=== PATIENT | female | born 1995 | race Caucasian/White ===

== ENCOUNTER → 2018-05-05 | Outpatient (CLI) | payer BC ==
[~2018-05-05] MED LIST: AMOX500C2 PO
--- NOTE | 2018-05-05 14:38 | Diagnostic Imaging Report ---
INDICATION: Right wrist pain. Time of exam 2:47 PM 3 views of the right wrist were obtained. Distal radius and ulna are intact. Carpus is intact. Metacarpals are unremarkable. No fractures are seen. IMPRESSION: No acute bony abnormality is detected. Dictated by: Dictated on workstation # [id number]
== END ==
LOC: RAD 14:07
PROVIDERS: ATTEND Family Medicine
DX: M25.531 Pain in right wrist (principal)
CPT/HCPCS: 73110

== ENCOUNTER → 2021-02-28 | Outpatient (CLI) | payer BC ==
--- NOTE | 2021-02-28 17:31 | Diagnostic Imaging Report ---
INDICATION: Chest pain. Shortness of breath since receiving Covid vaccine. FINDINGS: PA and lateral views. The lungs are well-aerated and clear. There is no air-trapping. Heart is not enlarged. No pulmonary edema. No hilar adenopathy. No pneumothorax or pleural effusion. No bony abnormalities. IMPRESSION: Normal PA and lateral chest. Dictated by: Dictated on workstation # [id number]
== END ==
LOC: RAD 15:33
PROVIDERS: ATTEND Family Medicine
DX: R07.89 Other chest pain (principal); R06.02 Shortness of breath
CPT/HCPCS: 71046

== ENCOUNTER → 2021-03-07 | Outpatient (CLI) | payer BC ==
[~2021-03-07] MED LIST changes: +CATHETER FLUSH 10 ML SYR IV PRN; +HOLD METFORMIN - RECEIVED CONTRAST 20 ML VIAL IV SCH; +IOHEXOL 350 MG/ML 100 ML (OMNIPAQUE 350) VIAL IV ONE; +NS 100 ML (IVPB) BAG IV ONE
--- NOTE | 2021-03-07 09:57 | Diagnostic Imaging Report ---
PROCEDURE: CT angiography of the chest with contrast. TECHNIQUE: Multiple contiguous axial images were obtained through the chest after uneventful bolus administration of intravenous contrast. 3D reconstructed CTA MIP acquisitions were also performed. Auto Exposure Controls were utilized during the CT exam to meet ALARA standards for radiation dose reduction. INDICATION: Chest pain, shortness of air. FINDINGS: There are no intraluminal pulmonary arterial filling defects. There is no pneumothorax. No focal pulmonary consolidation. No air cyst, scarring, or fibrosis. The aorta is patent and nonaneurysmal. No acute soft tissue or osseous chest wall pathology. The visualized upper abdomen appears nonacute. IMPRESSION: Negative for PE or other acute abnormalities. Clear lungs. Dictated by: Dictated on workstation # [id number]
== END ==
LOC: RAD 08:39
PROVIDERS: ATTEND Family Medicine
DX: R07.9 Chest pain, unspecified (principal); R06.02 Shortness of breath
CPT/HCPCS: 71275

== ENCOUNTER → 2021-04-13 | Outpatient (CLI) | payer BC ==
[~2021-04-13] MED LIST changes: -CATHETER FLUSH 10 ML SYR IV PRN; -HOLD METFORMIN - RECEIVED CONTRAST 20 ML VIAL IV SCH; -IOHEXOL 350 MG/ML 100 ML (OMNIPAQUE 350) VIAL IV ONE; -NS 100 ML (IVPB) BAG IV ONE; +RT-ALBUTEROL SULF 2.5 MG/3 ML PRE-MIX VIAL INH ONE
[2021-04-13 08:54] LABS: ABG BASE EXCESS -1.5 MMOL/L (-2.5-2.5); ABG OXYGEN SATURATION 98 % (94-100); ABG PCO2 36 MMHG (35-45); ABG PH 7.41 (7.37-7.43); ABG PO2 95 MMHG (79-93); ABG TCO2 23.7 MMOL/L (21.0-31.0)
[2021-04-13 09:00] LABS: ALLENS TEST POSITIVE; PATIENT TEMP 36.6; VENTILATOR NO
== END ==
LOC: RT 07:59
PROVIDERS: ATTEND Internal Medicine Critical Care Medicine
DX: Z13.83 Encounter for screening for respiratory disorder NEC (principal); R06.00 Dyspnea, unspecified
CPT/HCPCS: 36600; 82805; 94060; 94726; 94729

== ENCOUNTER 2021-04-24 18:51 | Emergency (ER) | payer BC ==
[~2021-04-24] VITALS: Ht 172.7 cm; Wt 97.0 kg
[~2021-04-24 18:51] MED LIST changes: -RT-ALBUTEROL SULF 2.5 MG/3 ML PRE-MIX VIAL INH ONE
--- NOTE | 2021-04-24 19:13 | ED General ---
General Stated Complaint: CP Source of Information: Patient Exam Limitations: No Limitations History of Present Illness Date Seen by Provider: Apr 24, 2021 Time Seen by Provider: 19:05 Initial Comments To ER with c/o left sided chest pressure all day today. She has had some dyspnea and sharp chest pains ongoing since her diagnosis of Covid October 2020. She then got the Covid vaccine in February of this year. Since then she has had worsening of her shortness of breath. She has an albuterol inhaler at home which she does not feel was helpful. She also has taken some Motrin which does not seem to have helped with the chest pain. Timing/Duration: 1 Week, Getting Worse Associated Systoms: Chest Pain, Cough Allergies and Home Medications Allergies Coded Allergies: No Known Drug Allergies (Unverified , 12/15/15) Home Medications Amoxicillin 500 Mg Capsule, 500 MG PO TID, (Reported) Patient Home Medication List Home Medication List Reviewed: Yes Review of Systems Review of Systems Constitutional: see HPI EENTM: see HPI Respiratory: no symptoms reported Cardiovascular: no symptoms reported Genitourinary: no symptoms reported Musculoskeletal: no symptoms reported Skin: no symptoms reported Psychiatric/Neurological: No Symptoms Reported Hematologic/Lymphatic: No Symptoms Reported Past Xvfmjzx-Byogjp-Lflzkx Hx Past Medical History Reproductive Disorders: No Sexually Transmitted Disease: No HIV/AIDS: No Adverse Reaction/Blood Tranf: No Physical Exam Vital Signs Vital Signs - First Documented 04/24/21 18:51 Temp 36.9 Pulse 86 Resp 20 B/P (MAP) 165/97 (119) Pulse Ox 97 O2 Delivery Room Air Capillary Refill : Height, Weight, BMI Height: 5'7" Weight: 180lbs. oz. 81.978331oe; 28.19 BMI Method: General Appearance: No Apparent Distress, WD/WN Eyes: Bilateral Eye Normal Inspection, Bilateral Eye PERRL, Bilateral Eye EOMI HEENT: PERRL/EOMI, TMs Normal Neck: Full Range of Motion, Normal Inspection Respiratory: Normal Breath Sounds, No Accessory Muscle Use, No Respiratory Distress Cardiovascular: Regular Rate, Rhythm, Normal Peripheral Pulses Gastrointestinal: Normal Bowel Sounds, Non Tender, Soft Extremity: Normal Capillary Refill, Normal Inspection Neurologic/Psychiatric: Alert, Oriented x3 Skin: Normal Color, Warm/Dry Progress/Results/Core Measures Suspected Sepsis SIRS Temperature: Pulse: Respiratory Rate: Laboratory Tests 04/24/21 19:04: White Blood Count 8.7 Blood Pressure / Mean: Laboratory Tests 04/24/21 19:04: Creatinine 0.98, Platelet Count 260, Total Bilirubin 0.3 Results/Orders Lab Results Laboratory Tests Test 04/24/21 19:04 04/24/21 19:19 Range/Units White Blood Count 8.7 4.3-11.0 10^3/uL Red Blood Count 4.48 3.80-5.11 10^6/uL Hemoglobin 14.1 11.5-16.0 g/dL Hematocrit 41 35-52 % Mean Corpuscular Volume 91 80-99 fL Mean Corpuscular Hemoglobin 32 25-34 pg Mean Corpuscular Hemoglobin Concent 35 32-36 g/dL Red Cell Distribution Width 12.2 10.0-14.5 % Platelet Count 260 130-400 10^3/uL Mean Platelet Volume 12.1 9.0-12.2 fL Immature Granulocyte % (Auto) 0 % Neutrophils (%) (Auto) 60 42-75 % Lymphocytes (%) (Auto) 29 12-44 % Monocytes (%) (Auto) 6 0-12 % Eosinophils (%) (Auto) 3 0-10 % Basophils (%) (Auto) 1 0-10 % Neutrophils # (Auto) 5.3 1.8-7.8 10^3/uL Lymphocytes # (Auto) 2.6 1.0-4.0 10^3/uL Monocytes # (Auto) 0.5 0.0-1.0 10^3/uL Eosinophils # (Auto) 0.3 0.0-0.3 10^3/uL Basophils # (Auto) 0.1 0.0-0.1 10^3/uL Immature Granulocyte # (Auto) 0.0 0.0-0.1 10^3/uL Sodium Level 138 135-145 MMOL/L Potassium Level 4.7 3.6-5.0 MMOL/L Chloride Level 106 98-107 MMOL/L Carbon Dioxide Level 21 21-32 MMOL/L Anion Gap 11 5-14 MMOL/L Blood Urea Nitrogen 8 7-18 MG/DL Creatinine 0.98 0.60-1.30 MG/DL Estimat Glomerular Filtration Rate > 60 BUN/Creatinine Ratio 8 Glucose Level 87 70-105 MG/DL Calcium Level 9.0 8.5-10.1 MG/DL Corrected Calcium 8.8 8.5-10.1 MG/DL Total Bilirubin 0.3 0.1-1.0 MG/DL Aspartate Amino Transf (AST/SGOT) 25 5-34 U/L Alanine Aminotransferase (ALT/SGPT) 19 0-55 U/L Alkaline Phosphatase 48 40-136 U/L Troponin I < 0.028 <0.028 NG/ML C-Reactive Protein High Sensitivity 0.52 H 0.00-0.50 MG/DL Total Protein 7.7 6.4-8.2 GM/DL Albumin 4.2 3.2-4.5 GM/DL Serum Test, Qualitative NEGATIVE NEGATIVE D-Dimer 0.59 H 0.00-0.49 UG/ML My Orders Orders - FRANCE GOMEZ APRN Cbc With Automated Diff (04/24/21 19:05) Hcg,Qualitative Serum (04/24/21 19:05) Ed Iv/Invasive Line Start (04/24/21 19:05) Comprehensive Metabolic Panel (04/24/21 19:05) Hs C Reactive Protein (04/24/21 19:05) Fibrin Degradation Products (04/24/21 19:05) Ekg Tracing (04/24/21 19:05) Troponin I (04/24/21 19:05) Hydrocodone/Apap 5/325 Tablet (Lortab 5 (04/24/21 19:15) Ct Angio Chest W (04/24/21 19:46) Iohexol Injection (Omnipaque 350 Mg/Ml 1 (04/24/21 20:00) Received Contrast (Hold Metformin- Contr (04/24/21 20:00) Sodium Chloride Flush (Catheter Flush Sy (04/24/21 20:00) Ns (Ivpb) (Sodium Chloride 0.9% Ivpb Bag (04/24/21 20:00) Albuterol/Ipra Inhalation Soln (Duoneb I (04/24/21 20:30) Svn Small Volume Nebulizer (04/24/21 20:24) Medications Given in ED Current Medications Medications Dose Ordered Sig/Jeffrey Route Start Time Stop Time Status Last Admin Dose Admin Acetaminophen/ Hydrocodone Bitart 1 ea ONCE ONCE PO 04/24/21 19:15 04/24/21 19:16 DC 04/24/21 19:27 1 EA Albuterol/ Ipratropium 3 ml ONCE ONCE INH 04/24/21 20:30 04/24/21 20:31 DC 04/24/21 20:47 3 ML Iohexol 100 ml ONCE ONCE IV 04/24/21 20:00 04/24/21 20:01 DC 04/24/21 19:59 90 ML Sodium Chloride 10 ml NEEDED PRN IV 04/24/21 20:00 04/24/21 19:59 10 ML Sodium Chloride 100 ml ONCE ONCE IV 04/24/21 20:00 04/24/21 20:01 DC 04/24/21 19:59 80 ML Vital Signs/I&O 04/24/21 04/24/21 04/24/21 18:51 18:51 20:44 Temp 36.9 Pulse 86 Resp 20 B/P (MAP) 165/97 (119) Pulse Ox 97 97 O2 Delivery Room Air Room Air Room Air Capillary Refill : Departure Communication (Admissions) NAME: YURIDIAGABRIELA R [facility] REC#: [id number] PT STATUS: REG ER : 1995 PHYSICIAN: FRANCE GOMEZ CERTIFIED NURSING ATTENDANT ADMIT DATE: 04/24/21/ER Draft Date of Exam:04/24/21 CT ANGIO CHEST W PROCEDURE: CT angiography of the chest with contrast. TECHNIQUE: Multiple contiguous axial images were obtained through the chest after uneventful bolus administration of intravenous contrast. 3D reconstructed CTA MIP acquisitions were also performed. Auto Exposure Controls were utilized during the CT exam to meet ALARA standards for radiation dose reduction. INDICATION: Chest pain and elevated D-dimer COMPARISON is made to study of 03/07/2021 There is good opacification of pulmonary arteries without intraluminal filling defect. The lungs appear clear and well-expanded. No pathologic adenopathy is identified in the mediastinum or marli. Prominent lymph nodes in the axillary regions have a similar overall appearance. IMPRESSION: No CTA evidence of pulmonary embolism or other acute abnormality within the thorax. Dictated on workstation # [id number] Dict: 04/24/212004 Trans: 04/24/212008 [facility] [id number] Interpreted by: EDITH GRACIA MD Electronically signed by: 1950-EKG shows sinus arrhythmia rate [address] changes. 2111-no major improvement after DuoNeb treatment or hydrocodone here. No alarming findings on work-up. We will have her trial a course of steroids and keep her follow-up appointment with pulmonology. Impression Primary Impression: Chest pain Qualified Codes: R07.9 - Chest pain, unspecified Additional Impression: Dyspnea Disposition: 01 HOME, SELF-CARE Condition: Stable Departure-Patient Inst. Decision time for Depature: 20:14 Referrals: JEMMA HOLLOWAY MD (PCP/Family) Primary Care Physician Patient Instructions: Shortness of Breath (Dyspnea) (DC) Add. Discharge Instructions: 1. Take the steroids as directed. The side effects of insomnia and/or anxiety are too bothersome you can simply stop taking them. Follow-up with pulmonology as scheduled. Return to ER for any worsening. Scripts Methylprednisolone (Methylprednisolone Dose Pack) 4 Mg Tab.ds.pk 4 MG PO UD for 6 Days, #21 PKG PER DOSE PACK INSTRUCTIONS Prov: FRANCE GOMEZ APRN 04/24/21 FRANCE GOMEZ APRN Apr 24, 2021 19:13
[2021-04-24] MEDS ORDERED: HYDROcodone/APAP 5 MG/325 MG (LORTAB) TAB PO ONE (19:15)
[2021-04-24 19:16] LABS: BASOPHILS # (AUTO) 0.1 10^3/uL (0.0-0.1); BASOPHILS % (AUTO) 1 % (0-10); EOSINOPHILS # (AUTO) 0.3 10^3/uL (0.0-0.3); EOSINOPHILS % (AUTO) 3 % (0-10); HEMATOCRIT 41 % (35-52); HEMOGLOBIN 14.1 g/dL (11.5-16.0); LYMPHOCYTES # (AUTO) 2.6 10^3/uL (1.0-4.0); LYMPHOCYTES % (AUTO) 29 % (12-44); MEAN CORPUSCULAR HEMOGLOBIN 32 pg (25-34); MEAN CORPUSCULAR HGB CONC 35 g/dL (32-36); MEAN CORPUSCULAR VOLUME 91 fL (80-99); MEAN PLATELET VOLUME 12.1 fL (9.0-12.2); MONOCYTES # (AUTO) 0.5 10^3/uL (0.0-1.0); MONOCYTES % (AUTO) 6 % (0-12); NEUTROPHILS # (AUTO) 5.3 10^3/uL (1.8-7.8); NEUTROPHILS % (AUTO) 60 % (42-75); PLATELET COUNT 260 10^3/uL (130-400); WHITE BLOOD COUNT 8.7 10^3/uL (4.3-11.0)
[2021-04-24 19:25] LABS: ALBUMIN 4.2 GM/DL (3.2-4.5)
[2021-04-24 19:26] LABS: CHLORIDE 106 MMOL/L (98-107); POTASSIUM 4.7 MMOL/L (3.6-5.0); SODIUM 138 MMOL/L (135-145)
[2021-04-24 19:28] LABS: GLUCOSE 87 MG/DL (70-105); TOTAL PROTEIN 7.7 GM/DL (6.4-8.2)
[2021-04-24 19:29] LABS: CARBON DIOXIDE 21 MMOL/L (21-32)
[2021-04-24 19:30] LABS: BILIRUBIN,TOTAL 0.3 MG/DL (0.1-1.0)
[2021-04-24 19:32] LABS: ALKALINE PHOSPHATASE 48 U/L (40-136); CREATININE SERUM 0.98 MG/DL (0.60-1.30); GFR ESTIMATED > 60
[2021-04-24 19:33] LABS: BUN/CREATININE RATIO 8
[2021-04-24 19:35] LABS: ALANINE AMINOTRANSFERASE 19 U/L (0-55)
[2021-04-24] MEDS ORDERED: IOHEXOL 350 MG/ML 100 ML (OMNIPAQUE 350) VIAL IV ONE (20:00)
[2021-04-24] MEDS ORDERED: CATHETER FLUSH 10 ML SYR IV PRN (20:00)
[2021-04-24] MEDS ORDERED: HOLD METFORMIN - RECEIVED CONTRAST 20 ML VIAL IV SCH (20:00)
[2021-04-24] MEDS ORDERED: NS 100 ML (IVPB) BAG IV ONE (20:00)
--- NOTE | 2021-04-24 20:09 | Diagnostic Imaging Report ---
PROCEDURE: CT angiography of the chest with contrast. TECHNIQUE: Multiple contiguous axial images were obtained through the chest after uneventful bolus administration of intravenous contrast. 3D reconstructed CTA MIP acquisitions were also performed. Auto Exposure Controls were utilized during the CT exam to meet ALARA standards for radiation dose reduction. INDICATION: Chest pain and elevated D-dimer COMPARISON is made to study of 03/07/2021 There is good opacification of pulmonary arteries without intraluminal filling defect. The lungs appear clear and well-expanded. No pathologic adenopathy is identified in the mediastinum or marli. Prominent lymph nodes in the axillary regions have a similar overall appearance. IMPRESSION: No CTA evidence of pulmonary embolism or other acute abnormality within the thorax. Dictated by: Dictated on workstation # [id number]
[2021-04-24] MEDS ORDERED: RT-ALBUTEROL/IPRATROPIUM 3 ML (DUONEB) VIAL INH ONE (20:30)
[2021-04-24] MEDS ORDERED: METH4TAB10 PO (21:14)
[2021-04-24 21:50] VITALS: BP 131/97
== END 2021-04-24 21:50 | disposition home or self-care (01) ==
LOC: EDUNIT# 18:51 → ER 18:52
DX: R07.9 Chest pain, unspecified (principal); R06.00 Dyspnea, unspecified; Z86.16 Personal history of COVID-19
CPT/HCPCS: 36415; 71275; 80053; 84484; 84703; 85025; 85379; 86141; 93005; 94640

== ENCOUNTER → 2021-05-11 | Outpatient (CLI) | payer BC ==
[~2021-05-11] MED LIST changes: +METH4TAB10 PO
--- NOTE | 2021-05-11 10:36 | Diagnostic Imaging Report ---
INDICATION: Right upper quadrant pain. PROCEDURE: Ultrasound abdomen complete. TECHNIQUE: Multiple real-time grayscale images were obtained of the abdomen in various projections. FINDINGS: The liver is normal in size without focal lesions. There is hepatopetal flow in the main portal vein. There is no biliary ductal dilatation. Common bile duct measures less than 5 mm. There is no cholelithiasis, gallbladder wall thickening or pericholecystic fluid. Pancreas is unremarkable. Spleen is normal in size. Aorta is nonaneurysmal. IVC is patent. Kidneys are normal. There is no ascites. IMPRESSION: Unremarkable abdominal ultrasound. Dictated by: Dictated on workstation # [id number]
== END ==
LOC: RAD 09:30
PROVIDERS: ATTEND Family Medicine
DX: R10.11 Right upper quadrant pain (principal)
CPT/HCPCS: 76700

== ENCOUNTER → 2021-06-20 | Outpatient (CLI) | payer BC ==
[~2021-06-20] MED LIST changes: +CATHETER FLUSH 10 ML SYR IV PRN
--- NOTE | 2021-06-20 12:57 | Diagnostic Imaging Report ---
HEPATOBILIARY SCAN DATE: June 20, 2021. INDICATION: 25-year-old female, abdominal pain. COMPARISON: Ultrasound May 11, 2021. CT abdomen and pelvis December 15, 2015. PROCEDURE: 3.86 mCi of Tc-99m Choletec was administered intravenously and serial anterior planar images over the liver and upper abdomen were obtained. FINDINGS: There is homogenous activity throughout the liver with good clearance of background activity. This indicates good hepatocellular function. Biliary tree activity is seen at 10 minutes. The gallbladder is seen at 15 minutes. There is no enterogastric reflux. The biliary tree is patent. There is no evidence of acute cholecystitis. CCK was administered. Gallbladder ejection fraction was calculated to be 63%. IMPRESSION: 1. No evidence of acute or chronic cholecystitis. Dictated by: Dictated on workstation # [id number]
== END ==
LOC: CARD 10:00
PROVIDERS: ATTEND Family Medicine
DX: R10.11 Right upper quadrant pain (principal)
CPT/HCPCS: 78227; A9537

== ENCOUNTER 2021-10-20 05:27 | Outpatient (RCR) | payer BC ==
[~2021-10-20] VITALS: Ht 173 cm; Wt 101.0 kg
[~2021-10-20 05:27] MED LIST changes: -CATHETER FLUSH 10 ML SYR IV PRN; +PANT20TA2 PO
== END 2021-10-20 11:50 | disposition home or self-care (01) ==
LOC: PREOP 05:27
PROVIDERS: ATTEND Surgery
DX: Z01.812 Encounter for preprocedural laboratory examination (principal); K21.9 Gastro-esophageal reflux disease without esophagitis; Z20.822 Contact with and (suspected) exposure to COVID-19
CPT/HCPCS: 87635

== ENCOUNTER 2021-10-24 12:28 | Day surgery (SDC) | payer BC ==
[2021-10-24] VITALS (8 sets, daily range): BP systolic 123–135; BP diastolic 74–91
[~2021-10-24] VITALS: Ht 173 cm; Wt 101.0 kg
[2021-10-24] MEDS ORDERED: LACTATED RINGERS 1,000 ML IV ONE (12:52)
[2021-10-24] MEDS ORDERED: LACTATED RINGERS 1,000 ML IV STA (13:08)
--- NOTE | 2021-10-24 13:50 | Progress Note-Pre Operative ---
Pre-Operative Progress Note H&P Reviewed The H&P was reviewed, patient examined and no changes noted. Date Seen by Provider: Oct 24, 2021 Time Seen by Provider: 13:49 Date H&P Reviewed: Oct 24, 2021 Time H&P Reviewed: 13:49 Pre-Operative Diagnosis: chronic gerd, epigastric pain VITALIY DOUGLASS DO Oct 24, 2021 13:50
[2021-10-24] MEDS ORDERED: proPOfol 200 MG/20 ML (DIPRIVAN) VIAL IV ONE (14:48)
--- NOTE | 2021-10-24 15:03 | Discharge Inst-Simple/Standard ---
Discharge Inst-Standard Patient Instructions/Follow Up Plan of Care/Instructions/FU: Tu in 2 weeks Activity as Tolerated: Yes Discharge Diet: Regular Diet NONA GLEASON BUSINESS DEVELOPMENT ASSOCIATE Oct 24, 2021 15:03
--- NOTE | 2021-10-24 15:04 | Anesthesia-General Post-Op ---
MAC Patient Condition Mental Status/LOC: Same as Preop Cardiovascular: Satisfactory Nausea/Vomiting: Absent Respiratory: Satisfactory Pain: Controlled Complications: Absent Post Op Complications Complications None Follow Up Care/Instructions Patient Instructions None needed. Anesthesiology Discharge Order Discharge Order Patient is doing well, no complaints, stable vital signs, no apparent adverse anesthesia problems. No complications reported per nursing. EVERTON SMITH CRNA Oct 24, 2021 15:04
[2021-10-24] MEDS ORDERED: SUCR1TAB36 PO (15:07)
--- NOTE | 2021-10-24 15:10 | Progress Note-Post Operative ---
Post-Operative Progess Note Surgeon (s)/Polysomnographic Technologist (s) Surgeon VITALIY DOUGLASS DO Polysomnographic Technologist: na Pre-Operative Diagnosis chronic gerd, epigastric pain Post-Operative Diagnosis reflux esophagitis Procedure & Operative Findings Date of Procedure 10/24/21 Procedure Performed/Findings egd c biopsies Anesthesia Type per cheese cutter Estimated Blood Loss Estimated blood loss (mL): none Specimens/Packing Specimens Removed antrum, ge VITALIY DOUGLASS DO Oct 24, 2021 15:10
--- NOTE | 2021-10-24 19:38 | OPERATIVE REPORT ---
DATE OF SERVICE: 10/24/2021 PREOPERATIVE DIAGNOSES: Chronic gastroesophageal reflux disease, epigastric abdominal pain. POSTOPERATIVE DIAGNOSIS: Reflux esophagitis. PROCEDURE: EGD with biopsy. SURGEON: Vitaliy Mae DO ANESTHESIA: Per SALES AND MARKETING PROFESSIONAL. ESTIMATED BLOOD LOSS: None. COMPLICATIONS: None. SPECIMENS: Antrum and GE junction. INDICATIONS: The patient is a 26-year-old female who has been having chronic GERD and epigastric abdominal pain. She understands risks and benefits of procedure and wishes to proceed. Consent was signed in the chart. DESCRIPTION OF PROCEDURE: The patient is endoscopy suite, placed in left lateral recumbent position. Timeout was performed. Scope was inserted in mouth, down the esophagus, stomach and into the duodenum without difficulty. There were no polyps, masses or ulcerations within the duodenum. Scope was slowly retracted back to stomach where it was further insufflated. No polyps, masses or ulcerations. Biopsy of the antrum was obtained. Scope was retroflexed noting no other pathology. Scope was returned to its normal position, slowly withdrawn to distal esophagus, changes, some slight reflux esophagitis present. Biopsy of the GE junction was obtained. Scope was slowly retracted back to completely remove, noting no other pathology. The patient tolerated procedure well without any complications. She was taken to recovery room in stable condition. RECOMMENDATIONS: The patient will continue on current medications. We will add Carafate 1 gram four times a day. We will have her follow up in the office in two to three weeks to see how she is doing at that time and go over pathology. Further recommendations pending. Job ID: [id number] DocumentID: [id number] Dictated Date: 10/24/2021 15:11:44 Glass Mold Repairer Date: 10/24/2021 19:37:18 Dictated By: VITALIY MAE DO
== END 2021-10-24 15:55 | disposition home or self-care (01) ==
LOC: ENDO 12:28
PROVIDERS: ATTEND Surgery
DX: E66.9 Obesity, unspecified (principal); F32.A Depression, unspecified; Z68.33 Body mass index [BMI] 33.0-33.9, adult; K21.00 Gastro-esophageal reflux disease with esophagitis, without bleeding; Z79.899 Other long term (current) drug therapy
CPT/HCPCS: 84703

== ENCOUNTER → 2021-11-14 | Outpatient (CLI) | payer BC ==
[~2021-11-14] MED LIST changes: +SUCR1TAB36 PO
--- NOTE | 2021-11-14 08:28 | Diagnostic Imaging Report ---
PROCEDURE: US Gallbladder. TECHNIQUE: Multiple real-time grayscale images were obtained over the right upper quadrant in various projections. INDICATION: Epigastric pain. FINDINGS: Liver measures 16 cm. No liver lesions are seen. The bile ducts are not dilated. The common duct measures 5 mm. Gallbladder appears normal without evidence of wall thickening or stones. Pancreas is partly obscured by bowel gas. Portions visualized appears normal. The aorta measures 1.7 cm. The portal vein and the IVC show normal flow with Doppler sampling. Right kidney measures 11 x 5 x 4.3 cm. There is no ascites. IMPRESSION: Normal right upper quadrant ultrasound. Dictated by: Dictated on workstation # [id number]
== END ==
LOC: RAD 07:15
PROVIDERS: ATTEND Surgery
DX: R10.13 Epigastric pain (principal)
CPT/HCPCS: 76705

== ENCOUNTER → 2021-11-24 | Outpatient (CLI) | payer BC ==
[~2021-11-24] MED LIST changes: +CATHETER FLUSH 10 ML SYR IV PRN
--- NOTE | 2021-11-24 12:26 | Diagnostic Imaging Report ---
INDICATION: Abdominal pain. EXAMINATION: HIDA scan 11/24/2021 FINDINGS: After the uneventful administration of 5.36 mCi of technetium 99m Choletec intravenously, subsequent imaging is performed with prompt homogeneous uptake seen throughout the liver. Gallbladder and small bowel are seen within less than 60 minutes. Subsequent administration of Ensure was given orally with continued imaging performed. Ejection fraction is calculated at 47% IMPRESSION: 1. No obstruction. 2. Normal ejection fraction. Dictated by: Dictated on workstation # [id number]
== END ==
LOC: CARD 10:00
PROVIDERS: ATTEND Surgery
DX: R10.13 Epigastric pain (principal)
CPT/HCPCS: 78227; A9537

== ENCOUNTER → 2021-12-07 | Outpatient (CLI) | payer BC ==
[~2021-12-07] VITALS: Ht 170.2 cm; Wt 100.0 kg
[~2021-12-07] MED LIST changes: -CATHETER FLUSH 10 ML SYR IV PRN; +FLUO10CA29 PO; +NORE1TAB95 PO
== END | disposition home or self-care (01) ==
LOC: PREOP 07:07
PROVIDERS: ATTEND Surgery
DX: Z01.818 Encounter for other preprocedural examination (principal)

== ENCOUNTER 2021-12-14 05:59 | Day surgery (SDC) | payer BC ==
[2021-12-14] VITALS (13 sets, daily range): BP systolic 127–185; BP diastolic 84–108
[~2021-12-14] VITALS: Ht 172.7 cm; Wt 100.0 kg
[2021-12-14] MEDS: LACTATED RINGERS 1,000 ML IV PRN ×2 (06:35→09:14)
[2021-12-14] MEDS ORDERED: ceFAZolin 2 GM IV Premixed 50 ML ONE (06:40)
[2021-12-14] MEDS ORDERED: ceFAZolin 2 GM IV Premixed 50 ML IV ONE (06:45)
[2021-12-14] MEDS ORDERED: LIDOCAINE/EPI 1%-1:200,000 (XYLOCAINE) 30 ML VIAL ONE (07:19)
[2021-12-14] MEDS ORDERED: MIDAZOLAM 2 MG/2 ML (VERSED) VIAL ONE (07:53)
[2021-12-14] MEDS ORDERED: fentaNYL INJ 100 MCG/2 ML AMP ONE (07:53)
--- NOTE | 2021-12-14 08:23 | Progress Note-Pre Operative ---
Pre-Operative Progress Note H&P Reviewed The H&P was reviewed, patient examined and no changes noted. Date Seen by Provider: Dec 14, 2021 Time Seen by Provider: 08:19 Date H&P Reviewed: Dec 14, 2021 Time H&P Reviewed: 08:19 Pre-Operative Diagnosis: RUQ ABD PAIN, BILIARY DYSKINESIA VITALIY DOUGLASS DO Dec 14, 2021 08:23
[2021-12-14] MEDS ORDERED: DOCU-143 PO (09:22)
[2021-12-14] MEDS ORDERED: ACHD5005 PO (09:22)
--- NOTE | 2021-12-14 09:23 | Discharge Inst-Simple/Standard ---
Discharge Inst-Standard Discharge Medications New, Converted or Re-Newed RX: Transmitted to Pharmacy Patient Instructions/Follow Up Plan of Care/Instructions/FU: 2-3 weeks Tu Activity as Tolerated: No Discharge Diet: Regular Diet Other Inst to Patient Follow up Appt: Make appointment for 2-3 weeks. Instructions: No lifting greater than 10 pounds. No strenuous activity. May shower in 24 hours, no tub bath or soaking. Use incentive spirometer at home as directed. No Smoking Skin/Wound Care: You have special glue over incision, it will fall off on it's own. Symptoms to Report: Appetite Changes, Extremity Discoloration, Numbness/Tingling, Swelling Increased, Bleeding Excessive, Eyesight Changes, Pain Increased, Urine Color Change, Constipation(Persistent), Fever over 101 degree F, Pain/Pressure in chest, Urinating Difficulty, Cough Up/Vomit Blood, Heart Beat Irreg/Pounding, Pain/Pressure in jaw, Vaginal Bleeding Increase, Cramps in feet or legs, Lightheadedness, Pain/Pressure in shoulder, Diarrhea(Persistent), Memory Changes Suddenly, Questions/Concerns, Weight gain consecutive days, Dizziness/Fainting, Nausea/Vomiting, Shortness of Breath, Weight gain over 2 pounds. If eyes or skin turn yellow notify physician. If questions or concerns contact your physician Or seek help at emergency department. VITALIY DOUGLASS DO Dec 14, 2021 09:23
--- NOTE | 2021-12-14 09:24 | Progress Note-Post Operative ---
Post-Operative Progess Note Surgeon (s)/Hot Dog Vender (s) Surgeon VITALIY DOUGLASS DO Hot Dog Vender: Dr. Ho to assist in retraction dissection and closure. Pre-Operative Diagnosis RUQ ABD PAIN, BILIARY DYSKINESIA Post-Operative Diagnosis same Procedure & Operative Findings Date of Procedure 12/14/21 Procedure Performed/Findings PROCEDURE: Laparoscopic cholecystectomy with intraoperative cholangiogram. COMPLICATIONS: None. PROCEDURE: The patient was taken to the operating suite and was prepped and draped in sterile fashion. A surgical pause was performed. Just superior to the umbilicus, a 12 mm incision was made. Dissection was taken down to the fascia, which was then scored and grasped with a Diaz and the abdomen was then entered. A 0 Vicryl suture was placed in a [id number] fashion and a Marion trocar was placed and secured. Pneumoperitoneum was achieved. A 5mm trochar place in the subxyphoid and 2 in the right upper quadrant. The gallbladder was then grasped and elevated. Adhesions to the gallbladder were taken down with blunt and cautery dissection. The cystic duct, and cystic artery were then dissected out. Clip was placed on the distal portion of the cystic duct which was then partially transected. An arrow catheter was inserted into the duct. The cholangiogram was then performed. No filing defects and contrast made its way into the duodenum. Catheter removed. Clips were placed on proximal portion of the cystic duct and then the duct was then transected. Clips were placed along the proximal and distal portion of the cystic artery which was then transected. Hook cautery was used to dissect the gallbladder from the gallbladder fossa achieving hemostasis. The gallbladder was placed in an Endobag and removed through the 12 mm trocar site. The abdomen was then reinspected. Copious amounts of irrigation were used to irrigate the abdomen and there were no signs of active bleeding. Hemostasis had been achieved. The 12 mm fascial defect was then closed with 0 Vicryl suture that had been placed in a [id number]-[id number] fashion. The abdomen was then desufflated, the trocars were removed. The abdomen was then washed and dried. The skin was then closed using 4-0 Monocryl in a subcuticular fashion. The abdomen was washed and dried and Skin Affix was place over incisions. Patient tolerated the procedure well without any complications and was taken to the recovery room in stable condition. Anesthesia Type general Estimated Blood Loss Estimated blood loss (mL): minimal Specimens/Packing Specimens Removed gallbladder VITALIY DOUGLASS DO Dec 14, 2021 09:24
[2021-12-14] MEDS ORDERED: LIDOCAINE PF 2% 5 ML (XYLOCAINE) VIAL ONE (09:26)
[2021-12-14] MEDS ORDERED: ONDANSETRON 4 MG/2 ML (SDV) Z0FRAN ONE ×2 (09:26→09:40)
[2021-12-14] MEDS ORDERED: proPOfol 200 MG/20 ML (DIPRIVAN) VIAL IV ONE (09:26)
[2021-12-14] MEDS ORDERED: GLYCOPYRROLATE 0.2 MG/ML (ROBINUL) 2 ML VIAL ONE (09:26)
[2021-12-14] MEDS ORDERED: NEOSTIGMINE 3 MG/3 ML VIAL ONE (09:26)
[2021-12-14] MEDS ORDERED: SEVOFLURANE (ULTANE) 15 ML INHAL SOLN ONE (09:27)
[2021-12-14] MEDS: HYDROmorphone 2 MG/ML VIAL (DILAUDID) ONE ×2 (09:42→11:05)
[2021-12-14] MEDS ORDERED: PROMETHAZINE INJ 25 MG/ML (PHENERGAN) AMP ONE (09:48)
[2021-12-14] MEDS ORDERED: KETOROLAC 30 MG/ML VIAL ONE (10:16)
--- NOTE | 2021-12-14 10:43 | Diagnostic Imaging Report ---
Indication: Cholecystitis. Cholecystectomy. Comparison: None Total fluoroscopy time: 11.3 seconds Total number fluoroscopic images saved: 53 Findings: Multiple intraoperative image intensifiers and digital subtraction views of the right upper abdominal quadrant were obtained during intraoperative cholangiogram. Injected contrast opacifies the intra and extrahepatic biliary ductal systems. There is suggestion of small filling defect within the mid and common bile ducts. This however is nonobstructive. Please note, intravenous radiologist was not present during the procedure. Conceivably, this could be related to artifact. Impression: Fluoroscopic guidance provided during cholangiogram as above. Dictated by: Dictated on workstation # [id number]
--- NOTE | 2021-12-19 08:24 | Anesthesia-General Post-Op ---
General Significant Intra-Op Events Notes late entry from 12-14-21 at 1100 Patient Condition Mental Status/LOC: Same as Preop Cardiovascular: Satisfactory Nausea/Vomiting: Absent Respiratory: Satisfactory Pain: Controlled Complications: Absent Post Op Complications Complications None Follow Up Care/Instructions Patient Instructions None needed. Anesthesia/Patient Condition Patient Condition Patient is doing well, no complaints, stable vital signs, no apparent adverse anesthesia problems. No complications reported per nursing. LIZBETH ELLSWORTH CRNA Dec 19, 2021 08:24
== END 2021-12-14 12:00 | disposition home or self-care (01) ==
LOC: SDC 05:59
PROVIDERS: ATTEND Surgery
DX: K82.8 Other specified diseases of gallbladder (principal); K81.1 Chronic cholecystitis; K21.00 Gastro-esophageal reflux disease with esophagitis, without bleeding; E66.9 Obesity, unspecified; Z68.33 Body mass index [BMI] 33.0-33.9, adult; F32.A Depression, unspecified; Z79.899 Other long term (current) drug therapy
CPT/HCPCS: 76000; 84703; 87081; 88304